=== PATIENT | male | born 1955 | race Caucasian/White ===

== ENCOUNTER 2020-07-27 12:54 | Emergency (ER) | payer OTHER, BC ==
[2020-07-27 13:08] VITALS: BP 123/63; PULSE 87; TEMP 98.2; BMI 33.1
--- OUTSIDE RECORDS SUMMARY | 2020-07-27 13:37 | XMS ---
:1955 Author Organization [facility] Care Team Providers Name Role Phone Mee Luc Candido Unavailable Apuzzo, Candido Unavailable Apuzzo, Candido Unavailable Apuzzo, Candido Unavailable Apuzzo, Candido Unavailable Apuzzo, Candido Unavailable Apuzzo, Candido Unavailable Apuzzo, Candido Unavailable Apuzzo, Candido Unavailable Apuzzo, Candido Unavailable Re-disclosure Warning The records that you are about to access may contain information from federally- assisted alcohol or drug abuse programs. If such information is present, then the following federally mandated warning applies: This information has been disclosed to you from records protected by federal confidentiality rules (42 CFR part 2). The federal rules prohibit you from making any further disclosure of this information unless further disclosure is expressly permitted by the written consent of the person to whom it pertains or as otherwise permitted by 42 CFR part 2. A general authorization for the release of medical or other information is NOT sufficient for this purpose. The Federal rules restrict any use of the information to criminally investigate or prosecute any alcohol or drug abuse patient.The records that you are about to access may contain highly sensitive health information, the redisclosure of which is protected by Article 27-F of the [place] Public Health law. If you continue you may haveaccess to information: Regarding HIV / AIDS; Provided by facilities licensed or operated by the [facility] Office of Mental Health; or Provided by the [facility] Office for People With Developmental Disabilities. If such information is present, then the following [facility] mandated warning applies: This information has been disclosed to you from confidential records which are protected by state law. State law prohibits you from making any further disclosure of this information without the specific written consent of the person to whom it pertains, or as otherwise permitted by law. Any unauthorized further disclosure in violation of state law may result in a fine or long-term sentence or both. A general authorization for the release of medical or other information is NOT sufficient authorization for further disclosure. Encounters Encounter Providers Location Date Indications Data Source(s ) Attender: Luc 05/04/2020 [facility] ( [facility] [place] 12:00:00 AM EDT Medical, ) Office Attender: Luc Caban 05/04/2020 12:00:00 AM EDT [facility] [place] [place] Attender: Luc Caban 05/04/2020 12:00:00 AM EDT [facility] [place] [place] Attender: Luc Caban 05/04/2020 12:00:00 AM EDT [facility] ([facility] [place] Office Medications Medication Brand Start Product Dose Route Administrative Pharmacy [facility] Indications Reaction Description Data Name Date Form Instructions Instructions Source(s) celecoxib CELECO 05/04/ CAPSULE 30 complet CELEC OXIB [facility] (St 200 MG Oral XIB:20 2019 ed [facility] Capsule 5323 12:00: Medical, CELECOXIB:2 00 AM PC) 58623 EDT irbesartan IRBESA 02/20/ TABLET 30 complet IRBES EDY [facility] (St 150 MG Oral RTAN:2 2019 ed [facility] Tablet 45967 12:00: Medical, IRBESARTAN: 00 AM PC) [id number] EDT Insurance Providers Payer name Policy type Policy ID Covered Covered libertarian's Policy P chato / Coverage libertarian ID relationship to [employer] ormation type agustin BC PPO [id number] [place] [id number] MEDICARE [id number] SP [id number] EMPIRE BC/BS [id number] 2 [id number] [place] MED[place] [id number] 1 [id number] PART B [place] Problems, Conditions, and Diagnoses Code Display Name Description Problem Type Effective Data Dates Source(s) M13.862 Other specified OTHER SPECIFIED Problem 05/04/2020 [facility] (St arthritis, left ARTHRITIS, LEFT 12:00:00 AM Janusz n's knee KNEE EDT Medical, ) M13.861 Other specified OTHER SPECIFIED Problem 05/04/2020 [facility] (St arthritis, right ARTHRITIS, RIGHT 12:00:00 AM J ohn's knee KNEE EDT [facility], ) M16.0 Bilateral primary BILATERAL PRIMARY Problem 05/04/2020 [facility] ([address] osteoarthritis of OSTEOARTHRITIS OF 12:00:00 AM [facility] hip HIP EDT [facility], ) I10 Essential (primary) ESSENTIAL (PRIMARY) Problem 020 [facility] ([address] hypertension HYPERTENSION 12:00:00 AM [facility] EDT [facility], ) Surgeries/Procedures Procedure Description Date Indications Data Source(s) Documentation of current 05/04/2020 [facility] ([facility] OFF[facility] OUTPATIENT VISIT 05/04/2020 [facility] ([facility] 15 MINUTES 12:00:00 AM EDT [facility], ) Social History Code Duration Value Status Description Data Source(s ) Smoking 05/04/2020 (-) smoke 3 completed (-) smoke 3 [facility] ([facility] 12:00:00 AM EDT coffee/day coffee/day occ. Med ica, ) occ. ETOH lives ETOH lives with with spouse-has spouse-has 2 2 healthy healthy (adult) (adult) kids kids Smoking 05/04/2020 Unknown if ever completed Unknown if ever [facility] ([facility] 12:00:00 AM EDT smoked smoked Medical, ) Vital Signs ID Date Data Source UNK Name Value Range Interpretation Code Description Data Source(s) Body mass index 36.8 kg/m2 36.8 kg/m2 [facility] ([facility] (BMI) [Ratio] Medical, ) Diastolic blood 80 mm[Hg] 80 mm[Hg] [facility] ([facility] pressure Medical, ) Systolic blood 140 mm[Hg] 140 mm[Hg] [facility] ([facility] pressure [facility], ) Body weight 271 lb 271 lb [facility] ([facility] [place], ) Body height 72 in 72 in [facility] ([facility] [place], )
[2020-07-27] MEDS ORDERED: KETOROLAC TROMETHAMINE 30 MG/1 ML VIAL IM ONE (13:57)
[2020-07-27] MEDS ORDERED: KETOROLAC TROMETHAMINE 30 MG/1 ML VIAL ONE (14:02)
--- NOTE | 2020-07-27 16:17 | PDOC ---
History of Present Illness - General Chief Complaint: Pain Stated Complaint: RT FOOT PAIN/SWOLLEN Time Seen by Provider: 07/27/20 13:10 History Source: Patient Exam Limitations: No Limitations - History of Present Illness Initial Comments: 07/27/20 16:06 64-year-old male history of bilateral hip replacements and left knee replacement presents complaining of atraumatic right foot and ankle pain with swelling x 1 week worsening over the past 2 days. Denies fever, chills, calf pain, chest pain, palpitations, shortness of breath or any other complaints. Patient reports right foot surgery 2-1/2 years ago. Had a nerve implant placed on right lower extremity by pain management Dr. Zelaya. Follows up with Dr. Chappell (ortho) and plans to schedule a follow-up appointment next week. Patient took Naprosyn at approximately 8 AM today. Patient reports warmth to right foot for 2-1/2 years ago after the surgery. Patient has been using his rolling walker this week. Usually ambulates without any assistance. ROS: as above PE: GENERAL: well-appearing, NAD HEAD: NCAT EYES: Pupils equal, round and reactive to light, sclera anicteric, conjunctiva clear ENT: pharynx: no erythema, no exudate, uvula midline NECK: supple CHEST: nontender RESP: clear, no w/r/r CARDIO: rrr, no m/g/r ABD: +BS, soft, nontender, non distended BACK: no midline spinal ttp, no CVAT EXTREMITIES: Right ankle and foot swelling, erythematous area noted to dorsum of right foot with warmth and tenderness to palpation, positive pedal pulses, no calf tenderness to palpation NEUROLOGICAL: Normal speech, nonambulatory due to pain SKIN: Warm, Dry Is this a multiple visit Asthma Patient?: No Past History - Medical History Allergies/Adverse Reactions: Allergies Allergy/AdvReac Type Severity Reaction Status Date / Time No Known Allergies Allergy Verified 07/27/20 13:03 COPD: No HTN: Yes - Psycho-Social/Smoking History Smoking History: Never smoked Have you smoked in the past 12 months: No - Substance Abuse Hx (Audit-C & DAST Scrn) How often the patient has a drink containing alcohol: Never Score: In Men: 4 or > Positive; In Women: 3 or > Positive: 0 Screen Result (Pos requires Nsg. Audit-10AR): Negative In the last yr the pt used illegal drug/Rx for NonMed reason: No Score: Yes response is considered Positive: 0 Screen Result (Positive result requires Nsg. DAST-10): Negative *Physical Exam - Vital Signs Last Vital Signs Temp Pulse Resp BP Pulse Ox 98.2 F 87 18 123/63 100 07/27/20 13:04 07/27/20 13:04 07/27/20 13:04 07/27/20 13:04 07/27/20 13:04 ED Treatment Course - RADIOLOGY Radiology Studies Ordered: Category Date Time Status LOWER EXTREMITY CT W/O CONTR [CT] Stat CT Scan 07/27/20 15:10 Taken ANKLE & FOOT-RIGHT* [RAD] Stat Radiology 07/27/20 13:48 Completed - Medications Given in the ED: ED Medications Discontinued Medications Generic Name Dose Route Start Last Admin Trade Name Freq PRN Reason Stop Dose Admin Ketorolac Tromethamine 30 mg 07/27/20 13:57 07/27/20 14:05 Toradol Injection - IM 07/27/20 13:58 30 mg ONCE ONE Administration Medical Decision Making - Medical Decision Making 07/27/20 16:17 64-year-old male history of bilateral hip replacements and left knee replacement presents complaining of atraumatic right foot and ankle pain with swelling x 1 week worsening over the past 2 days. Denies fever, chills, calf pain, chest pain, palpitations, shortness of breath or any other complaints. Patient reports right foot surgery 2-1/2 years ago. Had a nerve implant placed on right lower extremity by pain management Dr. Zelaya. Follows up with Dr. Chappell (ortho) and plans to schedule a follow-up appointment next week. Patient took Naprosyn at approximately 8 AM today. Patient reports warmth to right foot for 2-1/2 years ago after the surgery. Patient has been using his rolling walker this week. Usually ambulates without any assistance. R ankle and foot swelling, r/o fx vs early cellulitis RLE CT w/o con toradol 30 mg IM re assess 07/27/20 16:47 no acute fx noted on R foot/ankle xray or CT RLE w/o con copies provided to patient Rx for cephalexin sent to pharmacy for early RLE cellulitis will f/u with ortho and pain management next week if streaking noted, f/c or worsening concerns return to ED Discharge - Discharge Information Problems reviewed: Yes Clinical Impression/Diagnosis: Right foot pain Condition: Stable Disposition: HOME - Admission No - Follow up/Referral Referrals: Luc Caban MD [Primary Care Provider] - - Patient Discharge Instructions Additional Instructions: Follow-up with your orthopedist and pain management doctor next week. Take cephalexin 500 mg every 8 hours for 10 days. Take ibuprofen 600 mg every 6 hours as needed for pain. Rest, elevate - Post Discharge Activity
== END 2020-07-27 16:55 | disposition home or self-care (01) ==
LOC: JERFT 12:54
PROC: 3E0233Z Introduction of Anti-inflammatory into Muscle, Percutaneous Approach (ICD-10-PCS; principal; 2020-07-27)
DX: M79.671 Pain in right foot (principal)
CPT/HCPCS: 73610-TC-RT-FY; 73630-TC-RT-FY; 73700-TC-RT; 99284-25

== ENCOUNTER 2023-08-13 08:13 | Day surgery (SDC) | payer OTHER, BC ==
[2023-08-10 11:33] VITALS: BMI 33.7
[2023-08-13] MEDS ORDERED: MIDAZOLAM HCL 2 MG/2 ML SINGLE DOSE VIAL ONE (10:07)
[2023-08-13] MEDS ORDERED: ACETAMINOPHEN INJECTION 100 ML IVPB ONE (10:07)
[2023-08-13] MEDS ORDERED: DEXAMETHASONE SOD PHOSPHATE/PF 10 MG/ML SDV ONE (10:07)
[2023-08-13] MEDS ORDERED: BUPIVACAINE HCL/PF 0.5% (5 MG/ML) 30 ML VIAL IJ ONE (10:07)
[2023-08-13] MEDS ORDERED: PROPOFOL 20 ML ONE ×2 (10:34→11:03)
[2023-08-13] MEDS ORDERED: ceFAZolin SODIUM 1 GM VIAL ONE ×3 (10:35)
[2023-08-13] MEDS ORDERED: KETOROLAC TROMETHAMINE 30 MG/1 ML VIAL ONE (10:38)
[2023-08-13] MEDS ORDERED: oxyCODONE HCL 5 MG TABLET PO PRN ×2 (11:44)
[2023-08-13] MEDS ORDERED: ONDANSETRON 4 MG/2 ML VIAL IVPUSH PRN (11:44)
[2023-08-13] MEDS ORDERED: ACETAMINOPHEN 325 MG TABLET (FP) PO PRN (11:44)
[2023-08-13] MEDS ORDERED: LACTATED RINGERS SOLUTION 1,000 ML IV SCH (11:45)
[2023-08-13 14:19] VITALS: RESP 19
[2023-08-13 14:22] VITALS: BP 106/68; PULSE 56
[2023-08-13 15:42] VITALS: TEMP 97.5
== END 2023-08-13 13:10 | disposition home or self-care (01) ==
LOC: FASU 08:13
PROVIDERS: ATTEND Orthopaedic Surgery
PROC: 0PB94ZZ Excision of Right Clavicle, Percutaneous Endoscopic Approach (ICD-10-PCS; principal; 2023-08-13 10:47)
PROC: 0RBJ4ZZ Excision of Right Shoulder Joint, Percutaneous Endoscopic Approach (ICD-10-PCS; 2023-08-13 10:47)
DX: M75.41 Impingement syndrome of right shoulder (principal); M19.011 Primary osteoarthritis, right shoulder; M24.011 Loose body in right shoulder
CPT/HCPCS: 94760